=== PATIENT | male | born 1990 | race Caucasian/White ===

== ENCOUNTER 2021-07-11 16:15 | Emergency (ER) | payer OTHER ==
[2021-07-11] MEDS ORDERED: predniSONE 20 MG Tab PO ONE (16:49)
[2021-07-11] MEDS ORDERED: Cephalexin 500 MG Cap PO ONE (16:51)
--- NOTE | 2021-07-11 17:00 | EDM.PDOC ---
ED HPI GENERAL MEDICAL PROBLEM - General Chief Complaint: Skin Complaint Stated Complaint: RASH ALL OVER BODY Time Seen by Provider: 07/11/21 16:50 Source of Information: Reports: Patient History Limitations: Reports: No Limitations - History of Present Illness INITIAL COMMENTS - FREE TEXT/NARRATIVE: This 30 yo male patient reports to the ED with a week long history of a diffuse skin rash. The patient reports he has been in a ro[place] (small rojas full of ducks and geese). Shortly after he was in the water, the patient reports he started to notice a diffuse rash all over his body that has been getting worse. The patient has been using benadryl and anti-itch creams, but has noticed the erythematous areas getting bigger. Onset: Gradual Duration: Day(s):, Constant, Getting Worse Location: Reports: Generalized Quality: Reports: Other Severity: Moderate Improves with: Reports: None Worsens with: Reports: None Context: Reports: Other Associated Symptoms: Reports: No Other Symptoms Generalized Pain Score (Numeric/FACES): 4 - Related Data Home Meds: Home Meds Venlafaxine HCl [Venlafaxine ER] 150 mg PO ASDIRECTED 07/11/21 [History] traZODone HCl [Trazodone HCl] 50 mg PO ASDIRECTED 07/11/21 [History] ED ROS GENERAL - Review of Systems Review Of Systems: Comprehensive ROS is negative, except as noted in HPI. ED EXAM, SKIN/RASH Exam: See Below Exam Limited By: No Limitations General Appearance: Alert, WD/WN, Moderate Distress Eye Exam: Bilateral Eye: EOMI, Normal Inspection, PERRL Ears: Normal External Exam, Normal Canal, Hearing Grossly Normal, Normal TMs Nose: Normal Inspection, Normal Mucosa, No Blood Throat/Mouth: Normal Inspection, Normal Lips, Normal Teeth, Normal Gums, Normal Oropharynx, Normal Voice, No Airway Compromise Head: Atraumatic, Normocephalic Neck: Normal Inspection, Supple, Non-Tender, Full Range of Motion Respiratory/Chest: No Respiratory Distress, Lungs Clear, Normal Breath Sounds, No Accessory Muscle Use, Chest Non-Tender Cardiovascular: Normal Peripheral Pulses, Regular Rate, Rhythm, No Edema, No Gallop, No JVD, No Murmur, No Rub GI/Abdominal: Normal Bowel Sounds, Soft, Non-Tender, No Organomegaly, No Distention, No Abnormal Bruit, No Mass (Male) Exam: Deferred Rectal (Males) Exam: Deferred Back Exam: Normal Inspection, Full Range of Motion, NT Extremities: Normal Inspection, Normal Range of Motion, Non-Tender, No Pedal Edema, Normal Capillary Refill Neurological: Alert, Oriented, CN II-XII Intact, Normal Cognition, Normal Gait, Normal Reflexes, No Motor/Sensory Deficits Psychiatric: Normal Affect, Normal Mood Location, Skin: Generalized Characteristics: Erythematous Lymphatic: No Adenopathy Course - Vital Signs Last Recorded V/S: Last Vital Signs Temp 98.6 F 07/11/21 16:43 Pulse 117 H 07/11/21 16:43 Resp 16 07/11/21 16:43 BP 146/95 H 07/11/21 16:43 Pulse Ox 100 07/11/21 16:43 - Orders/Labs/Meds Meds: Medications Discontinued Medications Generic Name Dose Route Start Last Admin Trade Name Freq PRN Reason Stop Dose Admin Cephalexin 500 mg 07/11/21 16:51 07/11/21 16:56 Cephalexin 500 Mg Cap PO 07/11/21 16:52 500 mg ONETIME ONE Administration Prednisone 40 mg 07/11/21 16:49 07/11/21 16:57 Prednisone 20 Mg Tab PO 07/11/21 16:50 40 mg ONETIME ONE Administration Departure - Departure Time of Disposition: 16:55 Disposition: Home, Self-Care 01 Condition: Fair Clinical Impression: Cercarial dermatitis - Discharge Information *PRESCRIPTION DRUG MONITORING PROGRAM REVIEWED*: Not Applicable *COPY OF PRESCRIPTION DRUG MONITORING REPORT IN PATIENT LIAT: Not Applicable Instructions: Swimmer's Itch Forms: ED Department Discharge Care Plan Goals: The patient was advised of the examination results during the visit. The patient was given an oral dose of Prednisone (40 mg) and Keflex (500 mg). The patient was discharged with a script for Prednisone (20 mg) #10 to take 2 by mouth daily for 5 days and Keflex (500 mg) #40 to take 1 by mouth 4 time per day for 10 days. If the patient has any additional symptoms or concerns, the patient should either return to the emergency department or visit his primary care facility. Sepsis Event Note (ED) - Focused Exam Vital Signs: Vital Signs Temp Pulse Resp BP Pulse Ox 07/11/21 16:43 98.6 F 117 H 16 146/95 H 100
== END 2021-07-11 17:18 | disposition home or self-care (01) ==
LOC: DL.ED 16:15
DX: B65.3 Cercarial dermatitis (principal)
CPT/HCPCS: 99282; A9270; J7512

== ENCOUNTER 2021-07-26 20:00 | Emergency (ER) | payer OTHER ==
[2021-07-26] MEDS ORDERED: Famotidine 20 MG Tab PO ONE (20:01)
[2021-07-26] MEDS ORDERED: predniSONE 20 MG Tab PO ONE (20:01)
[2021-07-26] MEDS ORDERED: predniSONE 20 MG Tab ONE (21:53)
[2021-07-26] MEDS ORDERED: Famotidine 20 MG Tab ONE (21:53)
--- NOTE | 2021-07-26 21:58 | EDM.PDOC ---
ED HPI GENERAL MEDICAL PROBLEM - General Chief Complaint: Allergic Reaction Stated Complaint: ALERGIC REACTION ALL OVER. Time Seen by Provider: 07/26/21 21:45 Source of Information: Reports: Patient History Limitations: Reports: No Limitations - History of Present Illness INITIAL COMMENTS - FREE TEXT/NARRATIVE: Recurrent hives all over body, started after taking wellbutrin, Similar reaction 2 weeks ago, stopped medication but trialed again and developed generalized rash. No breathing difficulty. Has been taking benadryl but rash not resolving. Prior episode had torsten given prednisone and rash had completely resolved. - Related Data Allergies Allergy/AdvReac Type Severity Reaction Status Date / Time bupropion [From Wellbutrin] Allergy Hives Verified 07/26/21 21:51 Home Meds: Home Meds Venlafaxine HCl [Venlafaxine ER] 150 mg PO ASDIRECTED 07/11/21 [History] traZODone HCl [Trazodone HCl] 50 mg PO ASDIRECTED 07/11/21 [History] Past Medical History Psychiatric History: Reports: Anxiety, Depression Dermatologic History: Reports: Urticaria Other Dermatologic History: hives developed 2 weeks ago when he stopped taking a new script of wellbutrin- resolved with meds in er at that time. Same thing happened today Social & Family History - Tobacco Use Tobacco Use Status *Q: Never Tobacco User Second Hand Smoke Exposure: No - Caffeine Use Caffeine Use: Reports: Coffee ED ROS ALLERGIC REACTION - Review of Systems Review Of Systems: Comprehensive ROS is negative, except as noted in HPI. ED EXAM GENERAL NO PERIP PULSE - Physical Exam Exam: See Below Exam Limited By: No Limitations General Appearance: Alert, No Apparent Distress Eye Exam: Bilateral Eye: EOMI Ears: Normal External Exam Nose: Normal Inspection Throat/Mouth: Normal Inspection, Normal Oropharynx, Normal Voice Head: Atraumatic, Normocephalic Neck: Normal Inspection Respiratory/Chest: No Respiratory Distress, Lungs Clear, Normal Breath Sounds Cardiovascular: Normal Peripheral Pulses, Regular Rate, Rhythm GI/Abdominal: Normal Bowel Sounds, Soft, Non-Tender Back Exam: Normal Inspection Neurological: Alert, Oriented, Normal Cognition Psychiatric: Normal Affect, Normal Mood Skin Exam: Warm, Intact Course - Vital Signs Last Recorded V/S: Last Vital Signs Temp 97.8 F 07/26/21 20:09 Pulse 99 07/26/21 20:09 Resp 20 07/26/21 20:09 BP 157/105 H 07/26/21 20:09 Pulse Ox 99 07/26/21 20:09 - Orders/Labs/Meds Meds: Medications Discontinued Medications Generic Name Dose Route Start Last Admin Trade Name Arjun PRN Reason Stop Dose Admin Famotidine Confirm 07/26/21 21:53 07/26/21 21:58 Famotidine 20 Mg Tab Administered 07/26/21 21:54 Not Given Dose 40 mg .ROUTE .STK-MED ONE Famotidine 20 mg 07/26/21 20:01 Famotidine 20 Mg Tab PO 07/26/21 20:02 .STK-MED ONE Prednisone Confirm 07/26/21 21:53 07/26/21 21:58 Prednisone 20 Mg Tab Administered 07/26/21 21:54 Not Given Dose 80 mg .ROUTE .STK-MED ONE Prednisone 40 mg 07/26/21 20:01 Prednisone 20 Mg Tab PO 07/26/21 20:02 .STK-MED ONE Departure - Departure Time of Disposition: 22:05 Disposition: Home, Self-Care 01 Condition: Good Clinical Impression: Hives Adverse effects of medication Qualifiers: Encounter type: initial encounter Qualified Code(s): T50.905A - Adverse effect of unspecified drugs, medicaments and biological substances, initial encounter - Discharge Information *PRESCRIPTION DRUG MONITORING PROGRAM REVIEWED*: No *COPY OF PRESCRIPTION DRUG MONITORING REPORT IN PATIENT LIAT: No Instructions: Hives, [id number] Forms: ED Department Discharge Additional Instructions: benadryl 25-50mg every 4 hours s needed for itching pepcid 20mg daily x 5 days prednisone taper clinic follow up if not improving, urgent follow up if breathing difficulty
== END 2021-07-26 22:05 | disposition home or self-care (01) ==
LOC: DL.ED 20:00
DX: L50.9 Urticaria, unspecified (principal); T43.295A Adverse effect of other antidepressants, initial encounter; Z88.8 Allergy status to other drugs, medicaments and biological substances
CPT/HCPCS: 99283; A9270; J7512